=== PATIENT | female | born 1965 | race Caucasian/White ===

== ENCOUNTER 2017-05-28 05:12 | Emergency (ER) | payer OTHER ==
[2017-05-28 05:45] VITALS: BP 121/78
== END 2017-05-28 05:45 | disposition home or self-care (01) ==
LOC: ED 05:12
DX: S20.219A Contusion of unspecified front wall of thorax, initial encounter (principal); S00.83XA Contusion of other part of head, initial encounter; V43.92XA Unspecified car occupant injured in collision with other type car in traffic accident, initial encounter; Y93.89 Activity, other specified; Y92.89 Other specified places as the place of occurrence of the external cause; Y99.8 Other external cause status